=== PATIENT | male | born 1955 | race Caucasian/White ===

== ENCOUNTER → 2017-07-04 | Day surgery (SDC) | payer OTHER ==
[2017-07-04] VITALS (10 sets, daily range): BP systolic 120–141; BP diastolic 60–81; PULSE 60–75; RESP 8–17; O2SAT 92–99
[~2017-07-04] VITALS: Ht 177.8 cm; Wt 103.0 kg
[~2017-07-04] MED LIST: ACET-171 PO; ASPI-973 PO; ATOR20TA PO; Bupivacaine-MPF 0.25% 30 mL Inj INFILTRATE ONE; Bupivacaine-MPF 0.5% 30 mL Inj INFILTRATE ONE; CRAN500T2 PO; CeFAZolin Inj 2 GM in IV Premix 1 EACH IV ONE; Dexamethasone 4 mg/mL Inj ONE; EPHEDrine Sulfate 50 mg/mL Inj IVPUSH PRN; EPHEDrine/NS 5 mg/mL 5 mL Syringe ONE; HYDR25TA4 PO; HYDROmorphone 1 mg/mL Inj IVPUSH PRN; IBUP-1827 PO; KETO120S3 TP; Lactated Ringer's 1,000 ML IV ONE; Lactated Ringer's 1,000 ML IV SCH; Lactated Ringer's 500 ML IV PRN; MULTIVITAMIN; MetoCLOpramide 5 mg/mL 2 mL Inj IVPUSH PRN; OMEG-38 PO; OXYC-530 PO; Ondansetron 2 mg/mL 2 mL Inj IVPUSH PRN; Ondansetron 2 mg/mL 2 mL Inj ONE; POLY17PO6 PO; PSYL798P2 PO; Phenylephrine 10,000 mCg/mL Inj IVPUSH PRN; Propofol 10,000 mCg/mL 20 mL Inj ONE; SILD100T PO; fentaNYL-PF 50 mCg/mL 2 mL Inj IVPUSH PRN; fentaNYL-PF 50 mCg/mL 2 mL Inj ONE
--- NOTE | 2017-07-04 07:25 | PCM.HPANE ---
Patient Data Date of Service: Jul 04, 2017 Surgeon Admitting Provider: Attending Provider:Yonny Sharma MD Primary Care Physician:Eliana Rush MD Other Provider:Linh Peguero Anesthesia Reason for Visit Left Inguinal Hernia Ht/WT & BMI Height (Feet): 5 Height (Inches): 10 Weight (Kilograms): 102.97 Body Mass Index 0.00 Allergies Coded Allergies: No Known Allergies (Unverified , 06/27/17) Past Anesthesia History Anesthesia History: Denies:: Abnormal Airway, Anesthesia Reactions, Difficult Intubation, Fam Anesthesia Reaction Diabetes History Hx Diabetes?: No MRSA MRSA: No Medications Blood Thinner: Aspirin Hypertension Medication: Yes Home Meds Incl Beta Hima: No Reported Medications Sildenafil Citrate (Viagra)100 Mg [id number] Mg PO UD PRN erectile dysfunction Ref 0 06/27/17 [mulitvite] No Conflict Check1 Capsule DAILY 06/27/17 Psyllium Husk (with Sugar) (Metamucil Powder)538 Gm Powder0.52 Gm PO DAILY 06/27/17 Ketoconazole 120 Ml [id number] Ml TP DAILY 06/27/17 Hydrochlorothiazide 25 Mg Siryjj94 Mg PO DAILY 30 Days Ref 0 06/27/17 Broseley-3/Dha/Epa/Fish Oil (Fish Oil 1,000 mg Softgel)1 Each Capsule1 Each PO DAILY 06/27/17 Cranberry Extract (Cranberry)500 Mg [id number] Mg PO DAILY 06/27/17 Atorvastatin (Lipitor)20 Mg Vuboel69 Mg PO DAILY Ref 0 06/27/17 Aspirin 81 Mg Bnewdr29 Mg PO DAILY Ref 0 06/27/17 History History of ENT Problems?: No HEENT History: Denies:: Abnormal Airway Cataracts (starting- no surgery at this time) Difficult Intubation Dysphagia Glaucoma Hearing Problem Sinus Problem TMJ Denture Type: None Teeth Condition: Within Normal Limits Hx of Heart Problems?: Yes Cardiovascular History: Positive for:: Irregular Heartbeat (bradycardia- stress test done 01/2017) Denies:: AICD Abdominal Aortic Aneurism Atrial Fibrillation Cardiac Surgery Chest Pain Congestive Heart Failure Heart Murmur Hypertension Pacemaker Peripheral Vascular Rheumatic Fever Valvular Heart Disease Other History/Comments HTN, Neg MPS 01/2017 for non-specific STD lateral lead EKG Hx of Respiratory Problem?: No Respiratory History: Denies:: Asthma COPD Dyspnea Emphysema Oxygen Administration Pneumonia Tuberculosis Use of C-PAP Machine Hx Neurologic Problems?: No Neurological History: Denies:: CVA Headaches Multiple Sclerosis Parkinson's Disease Seizures Hx of GI Problems?: Yes Gastrointestinal History: Denies:: Cirrhosis Gastroesphageal Reflux Hepatitis Liver Disease Other GI Pertinent History: left inguinal hernia current admission problem Hx of Problems?: No Genitourinary History: Denies:: Kidney Stones Urinary Tract Infection Male Hx: Denies:: Prostate Problems Skin History: Denies:: History Skin Disorders? Pressure Ulcers Hx Musculoskeletal Problems?: No Musculoskeletal History: Positive for:: Musculoskeletal Trauma (current bursitis elbow sx) Denies:: Back Injury Fibromyalgia Osteoarthritis Systemic Lupus Hx of Psycho/Social Problems?: No Psycho Social History: Denies:: Anxiety Hx Depression Hx Surgeries?: Yes (dental surgery, tonsils as child) Hx Any Other Health Problems?: Yes Other History: Denies:: Cancer Thyroid Disease History Blood Transfusions: Positive for:: Accept Blood Products? Denies:: Blood Transfusions Hx Diabetes: No Hx Alcohol Use: YesAlcoholic Drinks Per Day: once weeklyHx Substance Use: No Have You Smoked inLast 12 mo: No Stop/Bang P-Blood Pressure: treated: No B- Body Mass Index > 35 kg/m2: No A- Age over 50: Yes N- Neck Large Circumference: No G- Gender Male: Yes REUBEN Risk Assessment: Low Risk, <3 Yes Risk Assessment Category Category 1A: Patient has history of documented sleep apnea, and HAS NOT received any narcotic, sedative or anesthesia administration during this stay. Category 1B: Patient has history of documented sleep apnea, and HAS received any narcotic , sedative or anesthesia administration during this stay Category 2: Patient has SUSPECTED Obstructive Sleep Apnea, and HAS received any narcotic , sedative or anesthesia administration during this stay. Category 3: Patient has SUSPECTED Obstructive Sleep Apnea and HAS NOT received narcotic, sedative or anesthesia administration during this stay. Category 4: Outpatient in Procedural Areas with known sleep apnea or who screen positive for High Risk via the STOP/BANG questionnaire. Exam Exam Vital Signs Vital Signs Date Time Temp Pulse Resp B/P Pulse Ox O2 Delivery O2 Flow Rate FiO2 07/04/17 06:25 36.4 63 16 141/81 99 Room Air General Appearance: Alert, Oriented X3, Cooperative, No Acute Distress HEENT/AIRWAY: MP 2, Mouth Opening (ok) Lungs: Clear to Auscultation, Normal Air Movement Heart: Exam Unremarkable, Regular Rate/Rhythm, No Murmurs/Rubs/Gallops Meds/Labs/Diagnostics Admission Meds Current Medications Lactated Ringer's (Lr) 1,000 ml @ 120 mls/hr Q8H20M ONCE IV Last administered on 07/04/17 06:24; Start 07/04/17 at 05:00; Stop 07/04/17 at 13:19 Plan Impression Patient chart reviewed, patient interviewed and anesthestic plan with risks, benefits, and alternatives discussed, and informed consent obtained. NPO per Anesth. Guidelines: Yes ASA Physical Status: ASA2 Mod Systemic Disease Anesthetic Plan: GA Bene/Risks/Altern/Consents: Yes HP Complete Prior to Induction: Yes Chetan Duarte MD Jul 04, 2017 07:25
--- NOTE | 2017-07-04 08:51 | PCM.SURGOP ---
Surgical Operative Report Date of Service: Jul 04, 2017 Pre Operative Diagnosis Left inguinal hernia Post Operative Diagnosis Direct left inguinal hernia Procedure: Left inguinal hernia repair with mesh Surgeon and C[employer] Finishing Supervisor: Surgeon: Yonny Sharma MD Assistants: Franny Sampson MD PGY 4 Indication for Procedure 61-year-old man who has had a reducible left inguinal hernia for many months, who has been wearing a hernia belt for control. He became increasingly symptomatic, and wanted to have his hernia repaired. After discussion of risks and benefits, he agreed to proceed with left inguinal hernia repair with mesh. Findings: There was a direct hernia defect, but the hernia sac had a pantaloon component extending along the deeper portion of the spermatic cord. Procedure Details After smooth induction of general anesthesia, he was placed in the supine position with both arms out, and was prepped and draped in wide sterile fashion. A procedural pause was performed according to the SCOAP checklist, and all were found in agreement. A transverse incision was made in the skin lines of the left groin. Dissection was carried through the subcutaneous tissue with electrocautery until Jennifer's fascia was divided. The superficial inferior epigastric vein was cauterized and divided. The external oblique fascia was skeletonized down to the external inguinal ring. The external oblique fascia was opened sharply, taking care to not injure the underlying ilioinguinal nerve. The left spermatic cord contents were encircled with a Limerick drain. There was a moderate sized direct hernia defect containing preperitoneal fat. This was dissected free from the surrounding floor until the hernia contents could be easily reduced. There was no indirect defect, but the hernia sac had a small pantaloon component extending along the deeper portions of the spermatic cord. Once the hernia sac was completely dissected off the cord and inguinal floor to the level of the deep inguinal ring, it was reduced. The repair was then performed using the Bard 3 x 6 mesh, which was cut to size. It was secured in place using interrupted 0 Nurolon sutures, securing the mesh to the pubic tubercle, the shelving edge of the ilioinguinal ligament, the rectus fascia, and the conjoined tendon superiorly. A slit was cut in the mesh to allow it to be wrapped around the spermatic cord. The external oblique fascia was then closed using a running 3-0 Vicryl suture. Jennifer's fascia was closed with interrupted 3 -0 Vicryl suture. The skin incision was closed using a running 4-0 Monocryl subcuticular stitch. Steri-Strips and sterile dressings were applied. At the end of the case needle and sponge counts were correct 2. The patient was awakened from anesthesia without difficulty, and taken to the recovery room in satisfactory condition, having tolerated the procedure well. Complications There were no periprocedural complications identified. Surgical Specimen Removed: No Specimen sent to Pathology: Not applicable Anesthetic Plan: GA Grafts, Implants: Implants-See Implant Record Output, Estimated Blood Loss: 20 Blood Administration during greene: No Drains: None Catheters: None copies to: Eliana Rush MD, Joshua D MD Jul 04, 2017 08:51
--- NOTE | 2017-07-04 09:03 | PCM.DISURG ---
Surgical Discharge Instruction Date of Service Jul 04, 2017 Dates of Hospitalization Date of Hospital Admission Providers Admitting Physician: Primary Care Physician: Eliana Rush MD Attending Physician: Yonny Sharma MD Discharge Diagnosis Post Operative diagnosis Direct left inguinal hernia Diet Discharge Diet: No restrictions Activity Discharge Activity-General: No lifting >15 pounds for 2 weeks Dressing and Incisional Care Dressing Care: Allow Steri Stripes to fall off (usually takes 1-2 weeks.), Remove outer dressing after 24 hrs Hygiene: May shower after (after 24 hours.), DO NOT soak incision under water ( 2 weeks), NO bathtub, hot tub or whirlpool (2 weeks) Follow Up Plan Mid-level Provider (F9): Mike Fry PA-C Follow-up appointment: Weeks (2-4) Franny Sampson MD Jul 04, 2017 09:02
--- NOTE | 2017-07-04 10:29 | PCM.ANEP1 ---
Post Anesthesia PACU Phase 1 Assessment Date of Service: Jul 04, 2017 Vital Signs Vital Signs Date Time Temp Pulse Resp B/P Pulse Ox O2 Delivery O2 Flow Rate FiO2 07/04/17 09:50 63 10 126/60 94 Room Air 07/04/17 09:35 36.5 60 14 121/67 96 Room Air 07/04/17 09:20 62 12 123/65 93 Nasal Cannula 2 07/04/17 09:15 66 16 120/72 94 Nasal Cannula 2 07/04/17 09:10 68 8 122/66 92 Nasal Cannula 2 07/04/17 09:05 75 16 130/67 94 Nasal Cannula 2 07/04/17 08:59 36.5 66 15 130/71 94 Nasal Cannula 2 07/04/17 06:25 36.4 63 16 141/81 99 Room Air Level of Alertness: Awake, talking Pain: No Nausea or Vomiting: No CV Function & Hydration Stable: Yes Airway Device: Oxygen Delivery: Room Air Lungs: Clear to Auscultation, Normal Air Movement PACU Phase 2 Assessment Complications: No Follow up Care: No Patient Instructions Provided: N/A Chetan Duarte MD Jul 04, 2017 10:29
== END | disposition home or self-care (01) ==
LOC: SAS 05:44
PROVIDERS: ATTEND Student in an Organized Health Care Education/Training Program
DX: K40.90 Unilateral inguinal hernia, without obstruction or gangrene, not specified as recurrent (principal); R00.1 Bradycardia, unspecified; M71.5 Other bursitis, not elsewhere classified; Z79.82 Long term (current) use of aspirin; Z79.899 Other long term (current) drug therapy
CPT/HCPCS: 49505; C1781; J0690; J1100; J2405; J2704; J3010; J7120